=== PATIENT | male | born 1960 | race Caucasian/White ===

== ENCOUNTER 2017-07-18 06:42 | Emergency (ER) | payer BC ==
[~2017-07-18] VITALS: Ht 172.7 cm; Wt 117.2 kg
[~2017-07-18 06:42] MED LIST: ADVAIR HFA120 INHALA IH; AVELOX400 MG PO; Advair HFA 115/21 IH; Antivert PO; BENTYL20 MG PO; CITRATE OF MAG296 ML PO; Combivent IH; DELTASONE20 MG PO; FLEET ENEMA-AD118 ML PR; LAXATIVE SUPPO1 EACH PR; LEVAQUIN500 MG PO; LISINOPRIL20 MG PO; MILK OF MAGN PO; NOHOMEMEDS; PREDNISONE10 MG PO; PROAIR HFA8.5 GM IH; SPIRIVA RESPIMAT4 G1 IH
[2017-07-18] MEDS ORDERED: FLEXERIL10 MG PO (07:13)
[2017-07-18] MEDS ORDERED: LIDODERM 5% P1 PATCH TD (07:13)
[2017-07-18] MEDS ORDERED: NAPROXEN500 MG PO (07:13)
[2017-07-18 07:31] VITALS: BP 147/78
== END 2017-07-18 07:45 | disposition home or self-care (01) ==
LOC: EME 06:42
DX: M54.32 Sciatica, left side (principal); J44.9 Chronic obstructive pulmonary disease, unspecified; F17.200 Nicotine dependence, unspecified, uncomplicated
CPT/HCPCS: 99281; 99284; J1885